=== PATIENT | female | born 1960 | race Caucasian/White ===

== ENCOUNTER → 2019-08-08 | Outpatient (CLI) | payer BC, OTHER ==
[~2019-08-08] MED LIST: ALBU8.5H8 INH; OMEP20TA62 PO; SERT100T32 PO
== END | disposition home or self-care (01) ==
LOC: STAR 10:21
DX: Z01.818 Encounter for other preprocedural examination (principal); R12 Heartburn
CPT/HCPCS: 93005

== ENCOUNTER → 2019-08-16 | Day surgery (SDC) | payer BC, OTHER ==
[~2019-08-16] VITALS: Ht 162.6 cm; Wt 143.3 kg
[~2019-08-16] MED LIST changes: +DIPHENHYDRAMINE 50 MG/ML, 1ML IVPush PRN; +EPHEDRINE 50 MG/ML, 1ML IM PRN; +EPHEDRINE 50 MG/ML, 1ML IVPush PRN; +FENTANYL PF 100 MCG/2ML IV PRN; +LACTATED RINGERS 1,000 ML IV SCH; +MIDAZOLAM 1 MG/ML, 2ML IV PRN; +ONDANSETRON 2MG/ML, 2ML IV PRN; +PROMETHAZINE 25 MG/ML, 1ML IV PRN; +PROPOFOL 50 ML ONE
== END | disposition home or self-care (01) ==
LOC: OUT 08:57
DX: Z12.11 Encounter for screening for malignant neoplasm of colon (principal); D12.3 Benign neoplasm of transverse colon; K57.30 Diverticulosis of large intestine without perforation or abscess without bleeding; K21.9 Gastro-esophageal reflux disease without esophagitis; K44.9 Diaphragmatic hernia without obstruction or gangrene; G47.33 Obstructive sleep apnea (adult) (pediatric); E66.01 Morbid (severe) obesity due to excess calories; Z86.010 Personal history of colon polyps; Z87.891 Personal history of nicotine dependence
CPT/HCPCS: 43235; 45385; 88305; J2704; J7120